=== PATIENT | male | born 1980 | race Caucasian/White ===

== ENCOUNTER 2021-05-28 11:43 | Emergency (ER) | payer MEDICAID ==
[2021-05-28] MEDS ORDERED: cefTRIAXone 2 GM Vial IVPUSH ONE (12:07)
[2021-05-28] MEDS ORDERED: Sodium Chloride 0.9% 10 ML Syringe FLUSH PRN (12:07)
[2021-05-28] MEDS ORDERED: Dexamethasone 4 MG/ML SDV IVPUSH ONE (12:07)
[2021-05-28] MEDS ORDERED: Sodium Chloride 0.9% 1,000 ML IV ONE (12:07)
[2021-05-28] MEDS ORDERED: diphenhydrAMINE 50 MG/ML SDV IVPUSH ONE (12:34)
[2021-05-28 13:00] LABS: CHLORIDE,CL 102 mmol/L (98-107); ESTIMATED GFR > 60; SODIUM,NA 136 mmol/L (136-145)
[2021-05-28 13:04] LABS: ANION GAP 11.7 mmol/L (5-15)
== END 2021-05-28 13:25 | disposition home or self-care (01) ==
LOC: VM.ED 11:43
DX: J02.9 Acute pharyngitis, unspecified (principal); B37.0 Candidal stomatitis; Z88.0 Allergy status to penicillin; Z88.5 Allergy status to narcotic agent; Z72.0 Tobacco use
CPT/HCPCS: 80053; 83605; 85025; 86140; 86308; 86703; 87389; 87651-QW; 96374; 96375; 99284; 99284-25; J0696; J1100; J1200; J7030

== ENCOUNTER 2021-06-20 06:43 | Emergency (ER) | payer SELFPAY ==
[2021-06-20] MEDS ORDERED: Ondansetron 4 MG/2 ML SDV IVPUSH ONE (07:17)
[2021-06-20] MEDS ORDERED: Sodium Chloride 0.9% 1,000 ML IV SCH (07:30)
[2021-06-20] MEDS: fentaNYL 50 MCG/ML SDV IVPUSH ONE ×2 (07:32→07:55)
[2021-06-20 07:46] LABS: CHLORIDE,CL 100 mmol/L (98-107); SODIUM,NA 133 mmol/L (136-145)
[2021-06-20 07:47] LABS: ANION GAP 12.1 mmol/L (5-15)
[2021-06-20] MEDS ORDERED: fentaNYL 50 MCG/ML SDV IVPUSH ONE (08:01)
[2021-06-20] MEDS ORDERED: Iopamidol 612 MG/ML 100 ML Bottle IVPUSH ONE (08:27)
[2021-06-20] MEDS ORDERED: Acetaminophen/HYDROcodone 325-5 MG Tab PO ONE (09:35)
== END 2021-06-20 10:05 | disposition home or self-care (01) ==
LOC: VM.ED 06:43
DX: K57.32 Diverticulitis of large intestine without perforation or abscess without bleeding (principal); Z88.0 Allergy status to penicillin; Z88.5 Allergy status to narcotic agent; Z72.0 Tobacco use
CPT/HCPCS: 74177; 80053; 81001; 82150; 83690; 85025; 86140; 96374; 96375; 99283; 99284-25; A9270-GY; J2405; J3010; J7030; Q9967

== ENCOUNTER 2021-08-14 14:47 | Emergency (ER) | payer BC, MEDICAID | END 2021-08-14 15:44 | disposition home or self-care (01) | LOC: VM.ED 14:47 | DX: M79.672 Pain in left foot (principal); Z79.899 Other long term (current) drug therapy; Z88.5 Allergy status to narcotic agent; Z88.0 Allergy status to penicillin | CPT/HCPCS: 99283 ==

== ENCOUNTER 2021-08-20 03:49 | Emergency (ER) | payer BC, MEDICAID | END 2021-08-20 04:02 | LOC: VM.ED 03:49 | DX: S11.91XA Laceration without foreign body of unspecified part of neck, initial encounter (principal); S01.81XA Laceration without foreign body of other part of head, initial encounter; F17.210 Nicotine dependence, cigarettes, uncomplicated; Z88.0 Allergy status to penicillin; Z88.5 Allergy status to narcotic agent; Y04.0XXA Assault by unarmed brawl or fight, initial encounter | CPT/HCPCS: 99283; 99284 ==

== ENCOUNTER 2022-04-22 09:32 | Emergency (ER) | payer MEDICAID ==
[2022-04-22] MEDS ORDERED: Take Home: Cyclobenzaprine 10 MG Tab, 4 Tab Pack PO ONE (09:53)
== END 2022-04-22 10:02 | disposition home or self-care (01) ==
LOC: SUPCPDRO 09:32 → VM.ED 09:32
DX: S39.012A Strain of muscle, fascia and tendon of lower back, initial encounter (principal); Z72.0 Tobacco use; Z88.5 Allergy status to narcotic agent; Z88.1 Allergy status to other antibiotic agents; W00.0XXA Fall on same level due to ice and snow, initial encounter
CPT/HCPCS: 99283; A9270-GY

== ENCOUNTER 2022-07-25 09:34 | Emergency (ER) | payer MEDICAID ==
[2022-07-25] MEDS ORDERED: Sodium Chloride 0.9% 10 ML Syringe FLUSH PRN (09:49)
[2022-07-25 09:57] LABS: BASOPHILS ABSOLUTE AUTO 0.1 x10^3/uL (0.0-0.2); BASOPHILS PERCENT AUTO 0.3 % (0.2-1.2); EOSINOPHILS ABSOLUTE AUTO 0.2 x10^3/uL (0.0-0.5); EOSINOPHILS PERCENT AUTO 1.2 % (0.0-4.0); HEMATOCRIT 45.6 % (40.0-52.0); HEMOGLOBIN 15.7 g/dL (14.0-18.0); IMMATURE GRAN ABSOLUTE AUTO 0.05 x10^3/uL (0.00-0.07); LYMPHOCYTES ABSOLUTE AUTO 1.8 x10^3/uL (1.0-4.8); LYMPHOCYTES PERCENT AUTO 9.2 % (25.0-50.0); MEAN CORPUSCULAR HEMOGLOBIN 31.8 pg (26.0-32.0); MEAN CORPUSCULAR HGB CONC 34.4 g/dL (32.0-36.0); MEAN CORPUSCULAR VOLUME 92.5 fL (78.0-93.0); MONOCYTES ABSOLUTE AUTO 1.3 x10^3/uL (0.0-0.8); MONOCYTES PERCENT AUTO 6.5 % (2.0-11.0); NEUTROPHILS ABSOLUTE AUTO 16.4 x10^3/uL (1.8-7.7); NEUTROPHILS PERCENT AUTO 82.5 % (50.0-80.0); PLATELET COUNT,PLT 270 x10^3/uL (130-400); RED BLOOD CELL COUNT 4.93 x10^6/uL (4.5-6.0)
[2022-07-25] MEDS ORDERED: HYDROmorphone 0.5 MG/0.5 ML Syringe IVPUSH ONE ×2 (10:00→12:04)
[2022-07-25 10:06] LABS: WHITE BLOOD CELL COUNT,WBC 19.8 x10^3/uL (4.0-10.0)
[2022-07-25] MEDS ORDERED: ceFAZolin 1 GM Vial IVPUSH ONE (10:09)
[2022-07-25 10:13] LABS: A/G RATIO 0.82; ALBUMIN 3.1 g/dL (3.4-5.0); BILIRUBIN TOTAL 0.4 mg/dL (0.2-1.0); C-REACTIVE PROTEIN 8.8 mg/dL (<=0.9); CALCIUM 8.5 mg/dL (8.5-10.1); EST CRCL DRUG DOSING (CG) 94.27 mL/min; MAGNESIUM 1.7 mg/dL (1.8-2.4); POTASSIUM,K 3.8 mmol/L (3.5-5.1); PROTEIN TOTAL,TP 6.9 g/dL (6.4-8.2)
[2022-07-25 10:14] LABS: ANION GAP 14.8 mmol/L (5-15)
[2022-07-25 10:16] LABS: LACTIC ACID 2.1 mmol/L (0.4-2.0)
[2022-07-25] MEDS ORDERED: Lactated Ringers 1,000 ML IV ONE (10:27)
[2022-07-25] MEDS ORDERED: VANCOmycin 1.25 GM/250 ML 1.25 GM in Premix Bag 1 BAG IV ONE (11:07)
[2022-07-25] MEDS ORDERED: Piperacillin/Tazobactam 3.375 GM in Sodium Chloride 0.9% 100 ML IV ONE (11:16)
== END 2022-07-25 12:15 | disposition short-term general hospital (02) ==
LOC: VM.ED 09:34
DX: K91.89 Other postprocedural complications and disorders of digestive system (principal); Z88.1 Allergy status to other antibiotic agents; Z88.5 Allergy status to narcotic agent
CPT/HCPCS: 36415; 80053; 83605; 83735; 84145; 85025; 86140; 87040; 87070; 87077; 87186; 96365; 96375; 96376; 99284; 99285-25; J0690; J1170; J2543; J3370; J3490; J7120

== ENCOUNTER 2022-12-27 16:05 | Emergency (ER) | payer MEDICAID | END 2022-12-27 16:33 | disposition home or self-care (01) | LOC: VM.ED 16:05 | DX: L02.511 Cutaneous abscess of right hand (principal); L03.113 Cellulitis of right upper limb; F17.210 Nicotine dependence, cigarettes, uncomplicated; Z88.5 Allergy status to narcotic agent; Z88.0 Allergy status to penicillin | CPT/HCPCS: 99283 ==

== ENCOUNTER 2022-12-29 12:51 | Emergency (ER) | payer MEDICAID ==
[2022-12-29] MEDS: Take Home: Doxycycline 100 MG Cap, 4 Cap Pack PO ONE (13:16)
== END 2022-12-29 13:44 | disposition home or self-care (01) ==
LOC: VM.ED 12:51
DX: L03.113 Cellulitis of right upper limb (principal); T36.95XA Adverse effect of unspecified systemic antibiotic, initial encounter; F17.210 Nicotine dependence, cigarettes, uncomplicated; Z88.0 Allergy status to penicillin; Z88.5 Allergy status to narcotic agent
CPT/HCPCS: 99282; A9270

== ENCOUNTER 2022-12-30 13:50 | Emergency (ER) | payer MEDICAID | END 2022-12-30 14:00 | disposition left against medical advice (07) | LOC: VM.ED 13:50 | DX: Z53.21 Procedure and treatment not carried out due to patient leaving prior to being seen by health care provider (principal) ==

== ENCOUNTER 2023-02-24 16:36 | Emergency (ER) | payer MEDICAID ==
[2023-02-24] MEDS ORDERED: Lidocaine 1% 10 ML MDV INJECT ONE (16:51)
[2023-02-24] MEDS ORDERED: Ketorolac 30 MG/ML SDV IM ONE (16:52)
[2023-02-24] MEDS ORDERED: Take Home: Doxycycline 100 MG Cap, 4 Cap Pack PO ONE (17:22)
== END 2023-02-24 17:30 | disposition home or self-care (01) ==
LOC: SUPCPDRO 16:36 → VM.ED 16:36
DX: L03.011 Cellulitis of right finger (principal); F17.200 Nicotine dependence, unspecified, uncomplicated; Z88.0 Allergy status to penicillin; Z88.2 Allergy status to sulfonamides; Z88.5 Allergy status to narcotic agent
CPT/HCPCS: 10060; 87070; 87077; 96372; 99283; A9270-GY; J1885; J3490